=== PATIENT | female | born 1990 | race African-American/Black ===

== ENCOUNTER 2019-09-24 05:53 | Emergency (ER) | payer OTHER ==
[2019-09-24] MEDS ORDERED: methylPREDNISolone NA SUCC 125 MG/2 ML VIAL IVPUSH ONE (05:54)
[2019-09-24] MEDS ORDERED: FAMOTIDINE 20 MG/50 ML IVPB 20 MG/50 ML MG IVPB ONE ×2 (05:54→06:18)
[2019-09-24 05:56] VITALS: TEMP 97.6; BMI 23.9
[2019-09-24] MEDS ORDERED: methylPREDNISolone NA SUCC 125 MG/2 ML VIAL ONE (06:18)
--- NOTE | 2019-09-24 07:31 | PDOC ---
History of Present Illness - General Chief Complaint: Allergic Reaction Stated Complaint: ALLERGIC REACTION History Source: Patient Exam Limitations: No Limitations - History of Present Illness Initial Comments: Katia is a 29 yo F w a hx of childhood asthma who presents to the [facility] er after she had an allergic reaction overnight. She states her right hand started getting itchy, a rash started coming up her right arm, and then the rash spread to her chest, other arm, and back. 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 The reaction was slowly getting worse over the course of the night. She didn't make much of it until 4 am in the morning when she told the nurse at the home who gave her benadryl. They watched her in the home for an hour but then her lips, throat, and tongue started swelling at which point she got epinephrine at 5:15 am and was sent into the ER for evaluation and monitoring. She states that by the time she arrived to the ER she was feeling better without any symptoms. In the ER she was immediately given 125 of solumedrol as well as pepcid. - Says she also ate a unique wnin goat dish last night an she does not know what seasoning was inside the goat. Did not try any new medications. Denies personal or family history of angioedema. States father frequently gets rashes over his body when he eats certain foods. Durrently denies any wheezing, SOB, difficulty breathing, tongue/lip/throat swelling, nausea, vomiting, diarrhea, blurry vision or headache. PCP: In reserve, would like a local referall Allergies: Allergic to shellfish. NKDA PSH: None reported Social Hx: Denies smoking, drinking, or other substance abuse. Past History - Medical History Allergies/Adverse Reactions: Allergies Allergy/AdvReac Type Severity Reaction Status Date / Time shellfish derived Allergy Verified 09/24/19 06:10 Home Medications: Ambulatory Orders Epinephrine [Epipen 2-Jaun] 0.3 mg IJ ASDIR #1 kit 09/24/19 COPD: No - Psycho-Social/Smoking History Smoking History: Never smoked - Substance Abuse Hx (Audit-C & DAST Scrn) How often the patient has a drink containing alcohol: Never Score: In Men: 4 or > Positive; In Women: 3 or > Positive: 0 Screen Result (Pos requires Nsg. Audit-10AR): Negative In the last yr the pt used illegal drug/Rx for NonMed reason: No Score: Yes response is considered Positive: 0 Screen Result (Positive result requires Nsg. DAST-10): Negative Review of Systems - Review of Systems Able to Perform ROS?: Yes Comments:: CONSTITUTIONAL: Absent: fever, chills, diaphoresis, generalized weakness, malaise, loss of appetite HEENT: Present: throat swelling, mouth swelling Absent: rhinorrhea, nasal congestion, throat pain, difficulty swallowing, ear pain, eye pain, visual Changes CARDIOVASCULAR: Absent: chest pain, syncope, palpitations, irregular heart rate, lightheadedness, peripheral edema RESPIRATORY: Absent: cough, shortness of breath, dyspnea with exertion, orthopnea, wheezing, stridor, hemoptysis GASTROINTESTINAL: Absent: abdominal pain, abdominal distension, nausea, vomiting, diarrhea, constipation, melena, hematochezia GENITOURINARY: Absent: dysuria, frequency, urgency, hesitancy, hematuria, flank pain, genital pain MUSCULOSKELETAL: Absent: myalgia, arthralgia, joint swelling SKIN: Present: Rash, itching Absent: pallor HEMATOLOGIC/IMMUNOLOGIC: Absent: easy bleeding, easy bruising, lymphadenopathy, frequent infections ENDOCRINE: Absent: unexplained weight gain, unexplained weight loss, heat intolerance, cold intolerance NEUROLOGIC: Absent: headache, focal weakness or paresthesias, dizziness, unsteady gait, seizure, mental status changes, bladder or bowel incontinence PSYCHIATRIC: Absent: anxiety, depression, suicidal or homicidal ideation, hallucinations. *Physical Exam - Vital Signs Last Vital Signs Temp Pulse Resp BP Pulse Ox 97.6 F 85 18 127/79 100 09/24/19 05:54 09/24/19 05:54 09/24/19 05:54 09/24/19 05:54 09/24/19 05:54 - Physical Exam GENERAL: Well developed, well nourished. Awake and alert. No acute distress. HEENT: Normocephalic, atraumatic. PERRLA, EOMI. No conjunctival pallor. Sclera are non- icteric. Moist mucous membranes. Oropharynx is clear. NECK: Supple. Full ROM. No JVD. CARDIOVASCULAR: Regular rate and rhythm. No murmurs, rubs, or gallops. Distal pulses are 2+ and symmetric. PULMONARY: No evidence of respiratory distress. Lungs clear to auscultation bilaterally. No wheezing, rales or rhonchi. ABDOMINAL: Soft. Non-tender. Non-distended. No rebound or guarding. No organomegaly. Normoactive bowel sounds. MUSCULOSKELETAL Normal range of motion at all joints. No bony deformities or tenderness. No CVA tenderness. EXTREMITIES: No cyanosis. No clubbing. No edema. No calf tenderness. SKIN: Warm and dry. Normal capillary refill. No rashes. No jaundice. NEUROLOGICAL: Alert, awake, appropriate. Cranial nerves 2-12 intact. No deficits to light touch in face, upper extremities and lower extremities. No motor deficits in the in face, upper extremities and lower extremities. Normal speech. Gait is normal without ataxia. PSYCHIATRIC: Cooperative. Good eye contact. Appropriate mood and affect. ED Treatment Course - Medications Given in the ED: ED Medications Discontinued Medications Generic Name Dose Route Start Last Admin Trade Name Freq PRN Reason Stop Dose Admin Famotidine/Sodium Chloride 20 mg in 50 mls @ 100 mls/hr 09/24/19 05:54 09/24/19 06:43 Pepcid 20 Mg Premixed Ivpb - IVPB 09/24/19 06:23 100 mls/hr ONCE ONE Administration Methylprednisolone Sodium Succinate 125 mg 09/24/19 05:54 09/24/19 06:43 Solu-Medrol - IVPUSH 09/24/19 05:55 125 mg ONCE ONE Administration Medical Decision Making - Medical Decision Making Katia is a 29 yo F w a hx of childhood asthma who presents to the [facility] er after she had an allergic reaction overnight. She states her right hand started getting itchy, a rash started coming up her right arm, and then the rash spread to her chest, other arm, and back. 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 The reaction was slowly getting worse over the course of the night. She didn't make much of it until 4 am in the morning when she told the nurse at the home who gave her benadryl. They watched her in the home for an hour but then her lips, throat, and tongue started swelling at which point she got epinephrine at 5:15 am and was sent into the ER for evaluation and monitoring. She states that by the time she arrived to the ER she was feeling better without any symptoms. In the ER she was immediately given 125 of solumedrol as well as pepcid. - Says she also ate a unique winn goat dish last night an she does not know what seasoning was inside the goat. Did not try any new medications. Denies personal or family history of angioedema. States father frequently gets rashes over his body when he eats certain foods. Durrently denies any wheezing, SOB, difficulty breathing, tongue/lip/throat swelling, nausea, vomiting, diarrhea, blurry vision or headache. Vital Signs Temp Pulse Resp BP Pulse Ox 97.6 F 85 18 127/79 100 09/24/19 05:54 09/24/19 05:54 09/24/19 05:54 09/24/19 05:54 09/24/19 05:54 DDx IBNLT: Anaphylaxis, angioedema, allergic reaction to food/latex - Got 1st epi at 5:15 am Plan: Epi, steroids, diphenhydramine, antihistamines (H1 + H2), IV fluids, re-assess 8:00 am: Patient began feeling itchy and pruritic again. Denies oropharyngeal involvement. - Administering 50 mg Diphenhydramine, loratadine, and IVF in ed 09/24/19 11:51 Patient feeling much better in ED and has been asymptomatic for the past 4 hours. - States she is getting on Saturday - Requests to be discharged and she will follow up with an daub color mixer and hematology specialist - Epi sent to pharmacy - Strict return precautions discussed The patient appears clinically sober, is A&O x4, and appears to be capable and have capacity to make reasonable decisions. She states she is currently in the emergency department, knows who the president is, states the correct time, correct day, and correct month. The patient is ambulatory in ER and has walked around the nursing station multiple times with a straight gait, and is not ataxic. Tolerating PO well, ate a sandwich and drank juice. Denies having any SI or HI. Patient states will not be driving home. I discussed the physical exam findings, ancillary test results and final diagnoses with the patient. I answered all of the patient's questions. The patient was satisfied with the care received and felt comfortable with the disc harge plan and treatment plan. The patient will call their primary care physician within 24 hours to arrange follow-up and will return to the Emergency Department with any new, persistent or worsening symptoms. Please note, this clinical encounter is taking place during a federal and state health care emergency attributable to the novel Garza Virus pandemic. The [employer] of the Department of Health and Human Services has declared, pursuant to the Public Health Service Act 319F-3 (42 U.S.C. 247d-6d), that a covered persons activities related to medical countermeasures against COVID-19 will be immune from liability under Federal and State law. Discharge - Discharge Information Problems reviewed: Yes Clinical Impression/Diagnosis: Allergic reaction Qualifiers: Encounter type: initial encounter Qualified Code(s): T78.40XA - Allergy, un specified, initial encounter Condition: Improved Disposition: HOME - Admission No - Additional Discharge Information Prescriptions: Epinephrine [Epipen 2-Jaun] 0.3 mg IJ ASDIR #1 kit - Follow up/Referral Referrals: Lucia Bonner MD [Non Staff, Medical] - Boris Victoria MD [Non Staff, Medical] - Cirilo Collier MD [Non Staff, Medical] - Prince-Manuel Faulkner MD [Non Staff, Medical] - Pablo Wilhelm MD [Non Staff, Medical] - Sarah Vick [Non Staff, Medical] - Eli Duarte MD [Staff Physician] - Harshal Lawrence MD [Non Staff, Medical] - Wellington Arrieta [Non Staff, Medical] - Chyna Humphreys MD [Non Staff, Medical] - Hortencia Chapa MD [Non Staff, Medical] - Hodan Cardoso MD [Staff Physician] - Urban Squires MD [Non Staff, Medical] - - Patient Discharge Instructions Patient Printed Discharge Instructions: DI for Adverse Drug Reaction -- Allergic Additional Instructions: You came into the ER after an allergic reaction. You must go straight to the pharmacy and berry picker the epi pen in case your allergic reaction comes back. Come back to the ER immediately if any of your symptoms come back or you have any SOB, difficulty breathing, or swelling of your mouth/tongue or throat. Please call up one of the daub color mixer and immunologists we are referring you to immediately to schedule an appointment to figure out what you are allergic to. You must return to the Emergency Department with any new complaints, if your symptoms persist and do not improve or if you develop any other new or worsening concerns. As discussed, please call to follow up with your Primary Care physician in 1-2 days to discuss what happened to you in the emergency room, and make sure you are being looked after and taken care of. Your emergency room visit is not complete without this follow up appointment. Thank you for coming to the [place] ER. We hope you feel better soon! Print Language: GRENADIAN - Post Discharge Activity
[2019-09-24] MEDS ORDERED: LORATADINE 10 MG TABLET PO ONE (07:36)
[2019-09-24] MEDS ORDERED: SODIUM CHLORIDE 0.9% 500 ML INFUS.BAG IV ONE (07:38)
[2019-09-24] MEDS ORDERED: LORATADINE 10 MG TABLET ONE ×2 (07:55→08:38)
[2019-09-24 12:18] VITALS: BP 118/74; PULSE 76
--- NOTE | 2019-09-24 14:20 | PDOC ---
Documentation entered by Carol Kiran SCRIBE, acting as scribe for Sheila Borden MD. Sheila Borden MD: This documentation has been prepared by the Magno landrum Brenda, SCRIBE, under my direction and personally reviewed by me in its entirety. I confirm that the documentation accurately reflects all work, treatment, procedures, and medical decision making performed by me. Attending Attestation - Resident Resident Name: Aubrey Kimbrough - ED Attending Attestation I have performed the following: I have examined & evaluated the patient, The case was reviewed & discussed with the resident, I agree w/resident's findings & plan, Exceptions are as noted - HPI HPI: 09/24/19 09:09 The patient is a 29 year old female with a significant PMH of childhood asthma who presents to the ED for evaluation of a progressively worsening allergic reaction occurring overnight. Patient reports that last night her right hand became itchy, spreading a rash from her hand up her right arm and to her back,chest and the left arm. Patient notes intervening with Benadryl around 4:00am, at which time her lips, throat and tongue began to swell, so the nurse she lives with gave her epinephrine at 5:15am and she proceeded to the ED. On arrival, pt was given pepcid and benadryl. Patient notes she feel better at the moment and the rash has improved. Denies headache, N/V/D, abd pain, SOB, throat closing, cp, focal weakness/numbness, dizziness. Pt is not sure if she was exposed to anything new to prompt the symptoms. Denies fever, chills, and constipation. Denies dysuria, frequency, urgency and hematuria. Allergies: Shellfish Social history: No reported hx of tobacco use, alcohol use or illicit drug use. PCP: Qi (will refer near as requested by patient) - Physicial Exam PE: 09/24/19 12:01 Agree with resident exam - Medical Decision Making 09/24/19 14:17 29yo F presents to the ED wth allergic reaction, was given epi by roommate On arrival to ED, persistent itching, was also given pepcid, steroids, and benadryl Given epi, pt was observed for 6 hours, with complete resolution of sxs and no recurrence Pt feeling well, requests DC home Will DC with steroids and epi pen - pt instructed on epi pen use I discussed the physical exam findings, ancillary test results and final diagnoses with the patient. I answered all of the patient's questions. The patient was satisfied with the care received and felt comfortable with the discharge plan and treatment plan. The patient will call their primary care physician within 24 hours to arrange follow-up and will return to the Emergency Department with any new, persistent or worsening symptoms. Discharge - Discharge Information Problems reviewed: Yes Clinical Impression/Diagnosis: Hives, Throat and mouth symptom Allergic reaction Qualifiers: Encounter type: initial encounter Qualified Code(s): T78.40XA - Allergy, unspecified, initial encounter Condition: Improved Disposition: HOME - Additional Discharge Information Prescriptions: Epinephrine [Epipen 2-Jaun] 0.3 mg IJ ASDIR #1 kit - Follow up/Referral Referrals: Boris Victoria MD [Non Staff, Medical] - Cirilo Collier MD [Non Staff, Medical] - Lucia Bonner MD [Non Staff, Medical] - Manuel Wilkinson MD [Non Staff, Medical] - Pablo Wilhelm MD [Non Staff, Medical] - Sarah Vick [Non Staff, Medical] - Eli Duarte MD [Staff Physician] - Wellington Arrieta [Non Staff, Medical] - Harshal Lawrence MD [Non Staff, Medical] - Chyna Humphreys MD [Non Staff, Medical] - Hortencia Chapa MD [Non Staff, Medical] - Hodan Cardoso MD [Staff Physician] - Urban Squires MD [Non Staff, Medical] - - Patient Discharge Instructions Patient Printed Discharge Instructions: DI for Adverse Drug Reaction -- Allergic Additional Instructions: You came into the ER after an allergic reaction. You must go straight to the pharmacy and picker the epi pen in case your allergic reaction comes back. Come back to the ER immediately if any of your symptoms come back or you have any SOB, difficulty breathing, or swelling of your mouth/tongue or throat. Please call up one of the coffee grinder and immunologists we are referring you to immediately to schedule an appointment to figure out what you are allergic to. You must return to the Emergency Department with any new complaints, if your symptoms persist and do not improve or if you develop any other new or worsening concerns. As discussed, please call to follow up with your Primary Care physician in 1-2 days to discuss what happened to you in the emergency room, and make sure you are being looked after and taken care of. Your emergency room visit is not complete without this follow up appointment. Thank you for coming to the [facility]. We hope you feel better soon! Print Language: MOLDOVAN - Post Discharge Activity
== END 2019-09-24 12:16 | disposition home or self-care (01) ==
LOC: JER 05:53
PROC: 3E033GC Introduction of Other Therapeutic Substance into Peripheral Vein, Percutaneous Approach (ICD-10-PCS; principal; 2019-09-24)
DX: T78.40XA Allergy, unspecified, initial encounter (principal)
CPT/HCPCS: 99284-25